=== PATIENT | female | born 1985 ===

== ENCOUNTER 2016-12-10 15:29 | Emergency (ER) | payer SELFPAY ==
[2016-12-10 15:29] VITALS: BMI 24.2
[2016-12-10 16:45] VITALS: RESP 16; O2SAT 100
--- NOTE | 2016-12-10 17:46 | ED PDOC ---
HPI: CCC, URI, Sore Throat Time Seen by Provider: 12/10/16 17:27 Chief Complaint (Nursing): Flu-like Symptoms Chief Complaint (Provider): flu-like symptoms History Per: Patient History/Exam Limitations: no limitations Have you had recent travel within the past 21 days to any of the following countries: [place], [place], [place] or [place]?: No Onset/Duration Of Symptoms: Days (x 1) Current Symptoms Are (Timing): Still Present Location Of Pain: Throat, Diffuse Myalgias Sick Contacts (Context): None Associated Symptoms: Fever, Chills, Sore Throat, Cough, Myalgias, Nasal Congestion Additional Complaint(s): Jazmin Vera is a 31 year old female, with no previous medical history, who presents to the ED with complaints of flu-like symptoms ongoing since yesterday. Pt reports associated symptoms of body aches, fever with a t-max of 102.6, chills, sore throat and congestion. Pt denies any sick contact, recent travel, chest pain, shortness of breath, nausea, vomiting or abdominal pain. Pt denies any additional complaints at this time. PMD: [facility] Past Medical History Reviewed: Historical Data, Nursing Documentation, Vital Signs Vital Signs: Last Vital Signs Temp 99.1 F 12/10/16 16:41 Pulse 103 H 12/10/16 16:41 Resp 16 12/10/16 16:41 BP 114/47 L 12/10/16 16:41 Pulse Ox 100 12/10/16 17:51 - Medical History PMH: Anxiety, Hypothyroidism - Surgical History Surgical History: Appendectomy, - Family History Family History: States: No Known Family Hx - Living Arrangements Living Arrangements: With Family - Social History Current smoker - smoking cessation education provided: No Ex-Smoker (has not smoked in the last 12 months): No Alcohol: None Drugs: Denies - Home Medications Home Medications: Ambulatory Orders Medication Instructions Recorded Nitrofurantoin Macrocrystals 100 mg PO BID #14 cap 12/01/15 [Macrobid] Vit No.128/Iron/FA 1 each PO DAILY #30 tablet 12/01/15 [ Vitamin] Oxycodone HCl/Acetaminophen 1 tab PO Q6 PRN #10 tab 12/02/15 [Percocet 325 mg-5 mg] Polyethylene Glycol 3350 [Miralax] 17 gm PO DAILY PRN #5 packet 12/02/15 Albuterol HFA [Ventolin HFA 90 1 puff IH ASDIR #1 unit 12/10/16 mcg/actuation (8 g)] Azithromycin [Zithromax] 250 mg PO DAILY #6 tab 12/10/16 Benzonatate 200 mg PO TID PRN #20 capsule 12/10/16 - Allergies Allergies/Adverse Reactions: Allergies Allergy/AdvReac Type Severity Reaction Status Date / Time Penicillins Allergy RASH Verified 12/10/16 16:41 Curb-65 Severity Score - CURB-65 Severity Score Confusion: No Respiratory Rate greater than/equal to 30: No Systolic BP <90 or Diastolic BP less than/equal 60mmHg: No Age >64: No Curb-65 Score: 0 Percentage 30-day mortality: 0.6% Review of Systems ROS Statement: Except As Marked, All Systems Reviewed And Found Negative Constitutional: Positive for: Fever, Chills, Other (body aches) ENT: Positive for: Nose Congestion, Throat Pain Cardiovascular: Negative for: Chest Pain Respiratory: Positive for: Cough. Negative for: Shortness of Breath Gastrointestinal: Negative for: Nausea, Vomiting, Abdominal Pain, Diarrhea Physical Exam - Reviewed Nursing Documentation Reviewed: Yes Vital Signs Reviewed: Yes - Physical Exam Appears: Positive for: Well, Non-toxic, No Acute Distress Head Exam: Positive for: ATRAUMATIC, NORMAL INSPECTION, NORMOCEPHALIC Skin: Positive for: Normal Color, Warm, Dry ENT: Positive for: Pharyngeal Erythema (bilateral ), Tonsillar Swelling ( bilateral ). Negative for: Tonsillar Exudate Cardiovascular/Chest: Positive for: Regular Rate, Rhythm Respiratory: Positive for: Normal Breath Sounds. Negative for: Rhonchi, Wheezing, Respiratory Distress Neurologic/Psych: Positive for: Alert, Oriented - Laboratory Results Urine POC: Negative - ECG O2 Sat by Pulse Oximetry: 100 (RA) Pulse Ox Interpretation: Normal - Other Rad CXR X-Ray: Interpreted by Me, Viewed By Me X-Ray Interpretation: no infiltrate Medical Decision Making Medical Decision Making: Initial Impression: 31 year old female with URI Initial Plan: * urine * motrin * CXR * throat culture * rapid strep * influenza A B * reevaluation Flu and strep are negative, throat culture was sent. Rx given for zithromax, tessalon perles and ventolin inhaler. Advised rest, fluids, NSAID's for fever and pain and follow up with PMD in 1-2 days. Patient aware that she can RTED at any time if acutely worse. Scribe Attestation: Documented by Carly Alas, acting as a scribe for Zohreh Ortega PA-C. Provider Scribe Attestation: All medical record entries made by the Scribe were at my direction and personally dictated by me. I have reviewed the chart and agree that the record accurately reflects my personal performance of the history, physical exam, medical decision making, and the department course for this patient. I have also personally directed, reviewed, and agree with the discharge instructions and disposition. Disposition - Clinical Impression Clinical Impression: Pharyngitis, Bronchitis - Patient ED Disposition Is Patient to be Admitted: No Counseled Patient/Family Regarding: Studies Performed, Diagnosis, Need For Followup, Rx Given - Disposition Referrals: [facility] [Outside] Disposition: Routine/Home Disposition Time: 19:48 Condition: STABLE Additional Instructions: Take prescription meds as directed. [id number] Motrin for body aches as needed. Rest and drink plenty of fluids. Follow up with primary doctor in 2-3 days or return to ED any time if acutely worse. Prescriptions: Benzonatate 200 mg PO TID PRN #20 capsule PRN Reason: Cough Albuterol HFA [Ventolin HFA 90 mcg/actuation (8 g)] 1 puff IH ASDIR #1 unit Azithromycin [Zithromax] 250 mg PO DAILY #6 tab Instructions: Acute Bronchitis (ED), Pharyngitis (ED) Forms: [facility] ED School/Work Excuse
[2016-12-10 20:11] VITALS: BP 110/70; PULSE 84; TEMP 97.9
--- NOTE | 2016-12-11 10:24 | RAD ---
HISTORY: cough, fever COMPARISON: No prior. TECHNIQUE: Chest PA and lateral FINDINGS: LUNGS: No active pulmonary disease. PLEURA: No significant pleural effusion identified. No pneumothorax apparent. CARDIOVASCULAR: Normal. OSSEOUS STRUCTURES: No significant abnormalities. VISUALIZED UPPER ABDOMEN: Normal. OTHER FINDINGS: None. IMPRESSION: No active disease. Concordant results with the preliminary interpretation rendered by the emergency department physician procedure.
== END 2016-12-10 20:10 | disposition home or self-care (01) ==
LOC: H.ER 15:29
DX: J02.9 Acute pharyngitis, unspecified (principal); J20.9 Acute bronchitis, unspecified; F41.9 Anxiety disorder, unspecified; E03.9 Hypothyroidism, unspecified; Z88.0 Allergy status to penicillin; Z87.891 Personal history of nicotine dependence